=== PATIENT | female | born 1970 | race Caucasian/White ===

== ENCOUNTER 2024-06-15 10:42 | Emergency (ER) | payer OTHER ==
[~2024-06-15] VITALS: Ht 175.3 cm; Wt 62.0 kg
[2024-06-15 11:04] VITALS: BP 119/71
[2024-06-15 11:30] VITALS: BP 101/71
[2024-06-15] MEDS ORDERED: KETOROLAC TROMETHAMINE 30 MG/ML SDV IM ONE (11:30)
[2024-06-15 12:00] VITALS: BP 99/68
[2024-06-15 12:30] VITALS: BP 108/74
[2024-06-15] MEDS ORDERED: NAPROXEN500 MG PO (12:55)
[2024-06-15] MEDS ORDERED: CYCLOBENZAPRINE10 MG PO (12:55)
[2024-06-15 13:00] VITALS: BP 114/71
== END 2024-06-15 13:03 | disposition home or self-care (01) | DRG 605 ==
LOC: ED 10:42
DX: S30.0XXA Contusion of lower back and pelvis, initial encounter (principal); S70.01XA Contusion of right hip, initial encounter; W19.XXXA Unspecified fall, initial encounter